=== PATIENT | female | born 1975 | race Caucasian/White ===

== ENCOUNTER → 2016-07-04 | Outpatient (CLI) | payer BC ==
[~2016-07-04] MED LIST: HYDR-3583 PO; IBUP800T23 PO; ONDA1TAB16 SL; SOMA350T PO
[2016-07-04 13:04] LABS: BLOOD, URINE NEG (NEG); COMMENT (UR) CULT NOT INDICATED; CULTURE IF INDICATED CULT NOT INDICATED; GLUCOSE,URINE NEG (NEG); KETONE, URINE NEG (NEG); MUCUS URINE FEW /lpf (OCC); NITRITE,URINE NEG (NEG); SQUAMOUS EPITHELIAL CELL URINE 1 /hpf (0-5); URINE COLOR YELLOW (YELLW/STRAW)
[2016-07-04 13:08] LABS: BASOPHIL % 0.8 % (0.0-2.0); EOSINOPHIL # 0.1 TH/MM3 (0-0.4); EOSINOPHIL % 1.8 % (0.0-4.0); HEMATOCRIT 34.7 % (35.0-46.0); HEMO FLAGS DIFF FINAL; LYMPH % 36.5 % (9.0-44.0); LYMPHOCYTE # 1.6 TH/MM3 (1.0-4.8); MEAN CELL VOLUME 93.6 FL (80.0-100.0); MEAN CORPUSCULAR HEMOGLOBIN 31.6 PG (27.0-34.0); MEAN CORPUSCULAR HGB CONC 33.8 % (32.0-36.0); MONO % 15.6 % (0.0-8.0); NEUT % 45.3 % (16.0-70.0); PLATELET COUNT 178 TH/MM3 (150-450); RED CELL DISTRIBUTION WIDTH 12.9 % (11.6-17.2); WHITE BLOOD COUNT 4.4 TH/MM3 (4.0-11.0)
--- NOTE | 2016-07-04 16:39 | EKG ---
Date Performed: 07/04/2016 Time Performed: 12:28:30 PTAGE: 41 years EKG: SINUS BRADYCARDIA BORDERLINE ECG NO PREVIOUS TRACING DOCTOR: Jaren Paulino Interpretating Date/Time 07/04/2016 16:37:43
== END ==
LOC: CPRE 11:36
PROVIDERS: ATTEND Obstetrics & Gynecology
DX: Z01.812 Encounter for preprocedural laboratory examination (principal); Z01.810 Encounter for preprocedural cardiovascular examination; R00.1 Bradycardia, unspecified; N92.0 Excessive and frequent menstruation with regular cycle; N94.6 Dysmenorrhea, unspecified
CPT/HCPCS: 36415; 81001; 84703; 85025; 93005

== ENCOUNTER 2016-07-09 09:57 | Inpatient (IN) | payer BC ==
[~2016-07-09] VITALS: Ht 170.2 cm; Wt 64.2 kg
--- NOTE | 2016-07-09 09:04 | MH ---
cc: VIJAYA GREER. DATE OF ADMISSION 07/09/2016 ADMISSION DIAGNOSIS Menorrhagia and dysmenorrhea, dyspareunia. HISTORY OF PRESENT ILLNESS A 41-year-old white female para 1-0-0-1 returned for evaluation on 06/16/16 reporting that her LMP began on 06/02/2016 lasted 15 days, was moderate flow with intermittent right ovary pain and history of back pain the predates her and required IVF. Her ultrasound was obtained on 06/18/2016 which showed uterine fibroids, unusual thickening and small bilateral ovarian cyst, the one on the left largest measuring 4.2 x 5 cm, the one of the right 1.6 cm. She had another biopsy on 06/19/2016 that was benign and is now admitted for laparoscopy and hysterectomy. PAST MEDICAL HISTORY 1. She required laparoscopy in 2004 and 2005 for endometriosis. 2. She required IVF for her , delivered at term in 2006. MEDICATIONS 1. Motrin. 2. Codeine due to back pain. ALLERGIES None. TRANSFUSIONS None. SOCIAL HISTORY She is . She works. alcohol occasional. Tobacco none. Drugs none. FAMILY HISTORY Noncontributory. PHYSICAL EXAMINATION GENERAL: A well-nourished well-developed white female. VITAL SIGNS: Stable. HEENT: Exam is normal. CHEST: Clear HEART: Regular rate. BREASTS: Symmetrical ABDOMEN: Benign. PELVIC: Normal external genitalia and BUS. Vagina is normal. Cervix normal. Uterus is normal size, shape. Adnexa nonpalpable. ASSESSMENT As above. PLAN She is now admitted for laparoscopy, probable LASH procedure, possible LASH BSO, possible JOSY-BSO. Prefers ovarian sparing if at all possible, even though it could require future surgery. She has been explained if requires larger incision this will affect her length of stay essentially the body art of her abdomen, agrees to proceed. She will require BSO. She is advised the possibility for ERT replacement therapy. She has had a preop bowel prep and is ready to proceed. MD PAWEL Magallon/ /9:03 PM /8:43 AM [facility]ITALAinsley
[2016-07-09 10:45] VITALS: BP 117/70; PULSE 50; RESP 20; TEMP 97.9; O2SAT 100
[2016-07-09] MEDS ORDERED: ACETAMINOPHEN 1000 MG/100 ML VIAL IV SCH (10:45)
[2016-07-09] MEDS ORDERED: METOPROLOL TARTRATE 25 MG TAB PO PRN (10:45)
[2016-07-09] MEDS ORDERED: ceFAZolin 1,000 MG/NS 100 ML IV SCH ×2 (10:45)
[2016-07-09] MEDS ORDERED: INSULIN HUMAN REGULAR 1,000 UNITS/10 ML VIAL SQ PRN (10:45)
[2016-07-09] MEDS ORDERED: SODIUM CHLORID 0.9% 500 ML IV SCH (11:00)
[2016-07-09] MEDS ORDERED: LACTATED RINGER'S 1000 ML IV SCH (11:00)
[2016-07-09] MEDS ORDERED: NEOSTIGMINE 3 MG/3 ML SYR IV ONE (11:17)
[2016-07-09] MEDS ORDERED: PROPOFOL 200 MG/20 ML AMP IV ONE (11:17)
[2016-07-09] MEDS ORDERED: KETOROLAC TROMETHAMINE 60 MG/2 ML (IM) VIAL IM ONE (11:17)
[2016-07-09] MEDS ORDERED: ONDANSETRON HCL 4 MG/2 ML VIAL IV PUSH ONE (11:18)
[2016-07-09] MEDS ORDERED: BUPIVACAINE LIPOSOME PF 1.3% 20 ML VIAL ONE (11:52)
[2016-07-09] MEDS ORDERED: MIDAZOLAM HCL 5 MG/5 ML VIAL ONE (12:13)
[2016-07-09] MEDS ORDERED: APREPITANT 40 MG CAP ONE (12:14)
[2016-07-09] MEDS ORDERED: fentaNYL CITRATE 250 MCG/5 ML AMP ONE (12:24)
[2016-07-09] MEDS ORDERED: diphenhydrAMINE HCL 25 MG CAP PO PRN (14:00)
[2016-07-09] MEDS ORDERED: ZOLPIDEM TARTRATE 5 MG TAB PO PRN (14:00)
[2016-07-09] MEDS ORDERED: ONDANSETRON HCL 4 MG/2 ML VIAL IV PRN (14:00)
[2016-07-09] MEDS ORDERED: ONDANSETRON ODT 4 MG TAB PO PRN (14:00)
[2016-07-09] MEDS ORDERED: SODIUM CHLORIDE 0.9% FLUSH 5 ML FLUSH FLUSH PRN (14:00)
[2016-07-09] MEDS ORDERED: hydrOXYzine PAMOATE 25 MG CAP PO PRN (14:00)
[2016-07-09] MEDS ORDERED: PROMETHAZINE HCL 25 MG TAB PO PRN (14:00)
[2016-07-09] MEDS ORDERED: DO NOT ADM ANY ANTICOAGULANT DRUGS XX PRN (14:17)
[2016-07-09] MEDS ORDERED: *MEPERIDINE 25 MG INJ VIAL PERIprocedural Use ONLY ONE (14:29)
[2016-07-09] MEDS ORDERED: ONDANSETRON INJ 8 MG in DEXTROSE 5% IN WATER INJ 50 ML IV PRN ×2 (14:45)
[2016-07-09] MEDS: KETOROLAC TROMETHAMINE 30 MG/ML (IVP) VIAL IVP SCH ×2 (14:59→21:02)
[2016-07-09] MEDS: D5-1/2 NS + KCL 20 MEQ INJ 1,000 ML IV SCH ×2 (14:59→22:34)
[2016-07-09] MEDS: DOCUSATE SODIUM 100 MG CAP PO SCH (15:00)
[2016-07-09] MEDS ORDERED: *morphine SULFATE 8 MG/ML PERIprocedure ONLY ONE ×2 (15:04→15:24)
[2016-07-09 15:56] VITALS: BP 96/56; PULSE 48; RESP 16; TEMP 96.6; O2SAT 100
[2016-07-09 17:00] LABS: HEMATOCRIT 31.5 % (35.0-46.0); REVIEW FLAG FINAL
[2016-07-09] MEDS ORDERED: CARISOPRODOL 350 MG TAB PO PRN (17:30)
[2016-07-09] MEDS: ACETAMINOPHEN 1000 MG/100 ML VIAL IV SCH (19:30)
[2016-07-09 20:00] VITALS: BP 96/61; PULSE 53; RESP 16; TEMP 97.1; O2SAT 100
[2016-07-09] MEDS: SODIUM CHLORIDE 0.9% FLUSH 5 ML FLUSH FLUSH SCH (21:02)
[2016-07-09] MEDS: HYDROmorphone HCL PF 1 MG/ML VIAL IV PRN (22:34)
[2016-07-10 00:30] VITALS: BP 101/59; PULSE 54; RESP 16; TEMP 97.9; O2SAT 98
[2016-07-10] MEDS: DOCUSATE SODIUM 100 MG CAP PO SCH ×2 (03:46→15:01)
[2016-07-10] MEDS: KETOROLAC TROMETHAMINE 30 MG/ML (IVP) VIAL IVP SCH ×4 (03:46→21:08)
[2016-07-10] MEDS: ACETAMINOPHEN 1000 MG/100 ML VIAL IV SCH ×3 (03:46→19:27)
[2016-07-10 04:00] VITALS: BP 112/67; PULSE 50; RESP 16; TEMP 97.4; O2SAT 100
[2016-07-10] MEDS: HYDROmorphone HCL PF 1 MG/ML VIAL IV PRN ×5 (04:19→21:11)
[2016-07-10] MEDS: D5-1/2 NS + KCL 20 MEQ INJ 1,000 ML IV SCH ×3 (06:50→23:37)
[2016-07-10 07:41] LABS: BASOPHIL % 0.5 % (0.0-2.0); EOSINOPHIL # 0.1 TH/MM3 (0-0.4); EOSINOPHIL % 0.9 % (0.0-4.0); HEMATOCRIT 28.9 % (35.0-46.0); HEMO FLAGS DIFF FINAL; LYMPH % 20.4 % (9.0-44.0); LYMPHOCYTE # 1.2 TH/MM3 (1.0-4.8); MEAN CORPUSCULAR HEMOGLOBIN 31.3 PG (27.0-34.0); MEAN CORPUSCULAR HGB CONC 33.3 % (32.0-36.0); MONO % 8.6 % (0.0-8.0); NEUT % 69.6 % (16.0-70.0); PLATELET COUNT 141 TH/MM3 (150-450); RED BLOOD COUNT 3.08 MIL/MM3 (4.00-5.30); RED CELL DISTRIBUTION WIDTH 12.9 % (11.6-17.2); WHITE BLOOD COUNT 5.8 TH/MM3 (4.0-11.0)
[2016-07-10 08:00] VITALS: BP 104/72; PULSE 53; RESP 12; TEMP 96.5; O2SAT 99
[2016-07-10 08:10] LABS: POTASSIUM 4.1 MEQ/L (3.5-5.1)
[2016-07-10] MEDS: SODIUM CHLORIDE 0.9% FLUSH 5 ML FLUSH FLUSH SCH ×2 (08:11→21:11)
[2016-07-10 12:00] VITALS: BP 120/73; PULSE 52; RESP 12; TEMP 98.2; O2SAT 99
[2016-07-10 16:00] VITALS: BP 116/75; PULSE 55; RESP 12; TEMP 97.4; O2SAT 99
[2016-07-10 20:00] VITALS: BP 130/70; PULSE 52; RESP 15; TEMP 98.3; O2SAT 99
[2016-07-10] MEDS: ALUMINUM/MAGNESIUM/SIMETH 30 ML CUP PO PRN (23:35)
[2016-07-11] VITALS: BP 116/65; PULSE 50; RESP 15; TEMP 98.2; O2SAT 96
[2016-07-11] MEDS: DOCUSATE SODIUM 100 MG CAP PO SCH (03:25)
[2016-07-11] MEDS: HYDROmorphone HCL PF 1 MG/ML VIAL IV PRN ×3 (03:31→12:50)
[2016-07-11] MEDS: KETOROLAC TROMETHAMINE 30 MG/ML (IVP) VIAL IVP SCH ×2 (03:32→08:31)
[2016-07-11] MEDS: ACETAMINOPHEN 1000 MG/100 ML VIAL IV SCH ×2 (03:33→11:27)
[2016-07-11 04:00] VITALS: BP 102/61; PULSE 50; RESP 15; TEMP 98; O2SAT 95
--- NOTE | 2016-07-11 06:46 | HHI.DCPOC ---
Discharge Care Plan Report Symptoms to Your Doctor -Temperate above 100.5 degrees -Redness, of incision or excessive or foul smelling drainage -Unusual pain or calf pain -Increased vaginal bleeding -Painful or difficulty urinating -Feelings of extreme sadness or anxiety after 2 weeks Goals to Promote Your Health * To prevent worsening of your condition and complications * To maintain your health at the optimal level Directions to Meet Your Goals Take your medications as prescribed Follow your dietary instruction Follow activity as directed Ensure plenty of rest for recovery Drink fluids for hydration Keep your appointments as scheduled Take your immunizations and boosters as scheduled If your symptoms worsen call your PCP, if no PCP go to Urgent Care Center or Emergency Room Smoking is Dangerous to Your Health. Avoid second hand smoke Call the 24-hour crisis hotline for domestic abuse at Quinton Singh MD Jul 11, 2016 06:46
[2016-07-11] MEDS: D5-1/2 NS + KCL 20 MEQ INJ 1,000 ML IV SCH (07:00)
[2016-07-11 08:00] VITALS: BP 126/69; PULSE 50; RESP 18; TEMP 99.3; O2SAT 97
[2016-07-11] MEDS: ALUMINUM/MAGNESIUM/SIMETH 30 ML CUP PO PRN (08:31)
[2016-07-11] MEDS: SODIUM CHLORIDE 0.9% FLUSH 5 ML FLUSH FLUSH SCH (08:32)
[2016-07-11 12:00] VITALS: BP 126/74; PULSE 53; RESP 18; TEMP 98.3; O2SAT 99
--- NOTE | 2016-07-12 21:26 | MP ---
cc: VIJAYA GREER DATE OF SURGERY: 07/09/16 PREOPERATIVE DIAGNOSIS Menorrhagia, dysmenorrhea with uterine fibroids, anemia and dyspareunia. POSTOPERATIVE DIAGNOSIS Menorrhagia, dysmenorrhea with uterine fibroids, anemia and dyspareunia with right ovarian cyst. PROCEDURE Laparoscopy, LASH, RSO and left salpingectomy. ANESTHESIA General ET SURGEON Shikha Greer MD TOLL LINE MECHANIC Negin Starks. ESTIMATED BLOOD LOSS About 100 mL FLUIDS One liter crystalloid. OBJECTIVE FINDINGS Following induction of adequate general endotracheal anesthesia, the patient was prepped and draped supine on the operating table dorsal lithotomy position in usual sterile fashion with the bladder being drained by Manzo catheterization. The abdomen was opened through a 0.5 cm infraumbilical incision and a five port was placed. Laparoscope was inserted. A second 5 port placed left lower quadrant and an air seal port in the right lower quadrant. Pelvic contents showed uterus about 12 weeks size with multiple fibroids with one fibroids posterior about 4 cm impacting the rectum and posterior cul-de-sac and two on the anterior fundus. The left tube was clubbed with some omental adhesions, left ovary was normal. Right tube was clubbed and the ovary of it was cystic about 4+ centimeters. Cul-de-sacs were clear. Liver edge was normal. Working first on the left, the harmonic scalpel was used to take the left uterine pedicle, left round ligament, left broad ligament, left-sided bladder flap and the right uterine vessels. On the right side, the harmonic scalpel was used to take the right ovarian pedicle, right round ligament, right broad ligament, right-sided bladder flap and right uterine vessels. Harmonic scalpel was now used to amputate the fundus from the cervix. A pouch was used to extract the uterus, right tube and ovary. Harmonic scalpel was now used to take the left tube. Irrigation now performed, no bleeding was evident. Ureters showed good peristalsis. There was no bleeding on low pressure test. The operative sites were now coated with Tissel with good hemostasis and the umbilical port which had been expanded for the GelPort was now closed with a running stitch of 2-0 Vicryl for perineum, running 3-0 Vicryl locking for fascia, 3-0 running Vicryl for subcu and 3-0 Monocryl for skin. The laparoscope was now inserted in the lower port and used to inspect GelPort site which was well closed. Pelvis was inspected. There was no bleeding. Scope was removed, gas allowed to escape. The small ports were closed with 3-0 Monocryl. Dermabond applied. Counts correct and the patient was awaken and taken to recovery room in good condition. MD PAWEL Magallon/ /10:15 PM /9:16 PM MTDAinsley
--- NOTE | 2016-07-16 13:53 | MD ---
cc: VIJAYA GREER M.D. ADMISSION DATE: 07/09/2016 DISCHARGE DATE: 07/11/2016 ADMITTING DIAGNOSIS 1. Menorrhagia. 2. Dysmenorrhea. 3. Uterine fibroids. 4. Anemia. 5. Right ovarian cyst. DISCHARGE DIAGNOSIS 1. Menorrhagia. 2. Dysmenorrhea. 3. Uterine fibroids. 4. Anemia. 5. Right ovarian cyst. PROCEDURE Laparoscopy, LASH procedure, right salpingo-oophorectomy, left salpingectomy on 07/09/2016. BRIEF HISTORY A 41-year-old white female, para 1-0-0-1, admitted with a history of increasing menorrhagia, dysmenorrhea, uterine fibroids, anemia and a right ovarian cyst. HOSPITAL COURSE She underwent the above-mentioned procedures on 07/09/2016, had gradual advancement of diet and activity and was discharged home in excellent condition on 07/11/2016. DISCHARGE INSTRUCTIONS She was advised NPV, light activity. Return to see me in 2 weeks and to avoid driving until pain-free and off pain medication. She will take her routine meds at home and was given prescriptions for Percocet 5, 1-2 p.o. q.4h., p.r.n. pain, #60, and Zofran ODT 8 mg p.o. q.8h. hours p.r.n. nausea and vomiting, #15, no refills. MD PAWEL Magallon/ERICKSON /6:54 AM /1:48 PM
== END 2016-07-11 15:34 | disposition home or self-care (01) | DRG 743 ==
LOC: HSDC 09:57 → HSDI 14:01 → HOCA 15:50 → OBSVTOIN 17:00
PROVIDERS: ADMIT Obstetrics & Gynecology; ATTEND Obstetrics & Gynecology
PROC: 0UT04ZZ Resection of Right Ovary, Percutaneous Endoscopic Approach (ICD-10-PCS; 2016-07-09)
PROC: 0UT74ZZ Resection of Bilateral Fallopian Tubes, Percutaneous Endoscopic Approach (ICD-10-PCS; 2016-07-09)
PROC: 0UT94ZZ Resection of Uterus, Percutaneous Endoscopic Approach (ICD-10-PCS; principal; 2016-07-09 12:36)
DX: N92.0 Excessive and frequent menstruation with regular cycle (principal); D25.9 Leiomyoma of uterus, unspecified; N94.10 Unspecified dyspareunia; N94.6 Dysmenorrhea, unspecified; N83.201 Unspecified ovarian cyst, right side; D64.9 Anemia, unspecified
CPT/HCPCS: 80048; 85014; 85018; 85025; 86850; 86900; 86901; 88307; 94150; C9290; G0378; J0131; J0690; J1170; J1885; J2175; J2250; J2270; J2405; J2710; J3010; J3480; J7120; J8501